=== PATIENT | female | born 1980 | race Caucasian/White ===

== ENCOUNTER 2017-08-31 08:21 | Emergency (ER) | payer OTHER ==
[2017-08-31] MEDS ORDERED: SODIUM CHLORIDE 0.9% 1,000 ML IV ONE (08:44)
[2017-08-31] MEDS ORDERED: MORPHINE 2 MG/ML SYRINGE IVP STA ×2 (08:44→09:17)
[2017-08-31] MEDS ORDERED: ONDANSETRON 4 MG/2 ML VIAL IVP STA (08:44)
[2017-08-31] MEDS ORDERED: SODIUM CHLORIDE FLUSH 0.9% 10 ML SYRINGE IVP ONE ×2 (08:45→11:40)
--- NOTE | 2017-08-31 09:00 | XRAY Preliminary Report ---
Exam: XR CHEST 1 VIEW IMPRESSION: Patchy left basilar airspace process suspicious for pneumonia. Otherwise negative portabl e chest. [facility] SITE ID: [id number]
[2017-08-31] MEDS ORDERED: MORPHINE 2 MG/ML SYRINGE ONE ×2 (09:01→09:24)
[2017-08-31] MEDS ORDERED: ONDANSETRON 4 MG/2 ML VIAL ONE (09:01)
--- NOTE | 2017-08-31 09:03 | XRAY Report ---
EXAM: CHEST RADIOGRAPHY EXAM DATE: 08/31/2017 08:48 AM. CLINICAL HISTORY: Chest pain. COMPARISON: None. TECHNIQUE: 1 view. FINDINGS: Lungs/Pleura: Shallow inspiratory effort. Patchy airspace disease left base. No other focal opacities evident. No pleural effusion. No pneumothorax. Mediastinum: Within exam limitations, the cardiomediastinal contour is normal. Other: None. IMPRESSION: Patchy left basilar airspace process suspicious for pneumonia. Otherwise negative portabl e chest. [facility] Referring Provider Line: [phone] SITE ID: [id number]
[2017-08-31 09:04] LABS: BASOPHILS # (AUTO) 0.1 10^3/uL (0.0-0.1); BASOPHILS % (AUTO) 0.8 %; EOSINOPHILS # (AUTO) 0.1 10^3/uL (0.0-0.7); EOSINOPHILS % (AUTO) 0.4 %; HCT - HEMATOCRIT 38.8 % (37.0-47.0); HGB - HEMOGLOBIN 13.7 g/dL (12.0-16.0); LYMPHOCYTES # (AUTO) 1.6 10^3/uL (1.5-3.5); LYMPHOCYTES % (AUTO) 10.3 %; MEAN CORPUSCULAR HEMOGLOBIN 31.9 pg (27.0-31.0); MEAN CORPUSCULAR HGB CONC 35.3 g/dL (32.0-36.0); MEAN CORPUSCULAR VOLUME 90.5 fL (81.0-99.0); MEAN PLATELET VOLUME 7.2 fL (7.9-10.8); MONOCYTES # (AUTO) 1.2 10^3/uL (0.0-1.0); MONOCYTES % (AUTO) 7.6 %; NEUTROPHILS # (AUTO) 12.9 10^3/uL (1.5-6.6); NEUTROPHILS % (AUTO) 80.9 %; NUCLEATED RED BLOOD CELLS AUTO 0.1 /100WBC; RED BLOOD COUNT 4.29 10^6/uL (4.20-5.40); RED CELL DISTRIBUTION WIDTH 12.3 % (12.0-15.0)
--- NOTE | 2017-08-31 09:16 | ED Physician Documentation ---
History of Present Illness - Stated complaint Stated Complaint: BACK/CHEST PX - Chief complaint Chief Complaint: Cardiac - Additonal information Additional information: hx from pt 37 female severe chest pain radiating to the back with extreme soa started last night no fever cough no leg swelling no abd pain no recent travel recently quit smoking fhx CAD Review of Systems Constitutional: denies: Fever, Chills Cardiac: reports: Chest pain / pressure Respiratory: denies: Dyspnea GI: denies: Abdominal Pain : denies: Now EGA (tubal ligation) Musculoskeletal: reports: Back pain Endocrine: denies: Easy bruising / bleeding Immunocompromised: denies: Immunocompromised PD PAST MEDICAL HISTORY - Past Medical History Past Medical History: No - Past Surgical History Ortho: Other /[employer]: Tubal ligation - Present Medications Home Medications: Ambulatory Orders Medication Instructions Recorded Confirmed Azithromycin [Zithromax] 250 mg PO DAILY #4 tablet 08/31/17 Cyclobenzaprine [Flexeril] 10 mg PO TID PRN #20 tablet 08/31/17 Ibuprofen [Motrin] 400 mg PO Q6H PRN #30 tablet 08/31/17 Lidocaine Patch 5% [Lidoderm Patch] 1 each TOP DAILY PRN #10 patch 08/31/17 Varenicline Tartrate [Chantix] 1 tab PO BID 08/31/17 08/31/17 guaiFENesin/CODEINE [Robitussin AC] 5 - 10 ml PO Q6H PRN #120 udc 08/31/17 - Allergies Allergies/Adverse Reactions: Allergies Allergy/AdvReac Type Severity Reaction Status Date / Time No Known Drug Allergies Allergy Verified 08/31/17 08:59 - Social History Does the pt smoke?: No Smoking Status: Former smoker Does the pt drink ETOH?: No Does the pt have substance abuse?: No - Immunizations Immunizations are current?: Yes PD ED PE NORMAL - Vitals Vital signs reviewed: Yes (tachy, in extremem pain, breathing very shallow) - General General: Alert and oriented X 3 - Neck Neck: Supple, no meningeal sign - Cardiac Cardiac: RRR - Respiratory Respiratory: No respiratory distress (rapid, shallow decreased) - Abdomen Abdomen: Soft, Non tender - Derm Derm: Normal color - Extremities Extremities: No edema, No calf tenderness / cord - Neuro Neuro: No motor deficit Results - Vitals Vitals: Vital Signs - 24 hr 08/31/17 08/31/17 08/31/17 08:26 09:42 10:03 Temperature 36.4 C L 36.8 C Heart Rate 122 H 102 H 104 H Respiratory 20 22 20 Rate Blood Pressure 140/91 H 142/92 H 136/84 H O2 Saturation 98 100 100 08/31/17 12:13 Temperature 36.0 C L Heart Rate 103 H Respiratory 16 Rate Blood Pressure 124/74 O2 Saturation 94 Oxygen O2 Source Room air - EKG (time done) 0829 Rate: Rate (enter#) (116) Rhythm: Sinus tachycardia [place]: Normal Intervals: Normal OR Ischemia: Normal ST segments - Labs Labs: Laboratory Tests 08/31/17 08/31/17 08/31/17 08:55 08:55 08:55 WBC 16.0 H RBC 4.29 Hgb 13.7 Hct 38.8 MCV 90.5 MCH 31.9 H MCHC 35.3 RDW 12.3 Plt Count 286 MPV 7.2 L Neut # 12.9 H Lymph # 1.6 [place] # 1.2 H Eos # 0.1 Baso # 0.1 Absolute Nucleated RBC 0.01 Nucleated RBC % 0.1 D-Dimer Sodium 132 L Potassium 4.3 Chloride 99 L Carbon Dioxide 23 Anion Gap 10.0 BUN 8 Creatinine 0.7 Estimated GFR (MDRD) 94 Glucose 159 H Calcium 9.1 Total Bilirubin 0.7 AST 28 ALT 21 Alkaline Phosphatase 50 Troponin I < 0.04 Total Protein 8.2 Albumin 4.3 Globulin 3.9 Albumin/Globulin Ratio 1.1 Lipase 16 L 08/31/17 10:25 WBC RBC Hgb Hct MCV MCH MCHC RDW Plt Count MPV Neut # Lymph # [place] # Eos # Baso # Absolute Nucleated RBC Nucleated RBC % D-Dimer < 200.0 L Sodium Potassium Chloride Carbon Dioxide Anion Gap BUN Creatinine Estimated GFR (MDRD) Glucose Calcium Total Bilirubin AST ALT Alkaline Phosphatase Troponin I Total Protein Albumin Globulin Albumin/Globulin Ratio Lipase - Rads (name of study) CXR Radiology: See rad report (patchy left basilar airspace dz) PD MEDICAL DECISION MAKING - ED course ED course: d dimer neg but pt not low risk for PE (smoker, tachy etc and abd CXR which could be infarct) so got CT with contrast showing no PE neg EKG and trop seems to be L pna with severe pleurisy will try to control sx and dc if pain controlled pt updated pain still severe after morphine so tried toradol lido patch bryan AC and flexeril (she felt spasm in her back) and she feels much much better and is ready to go Departure - Departure Disposition: 01 Home, Self Care Clinical Impression: Pneumonia Qualifiers: Pneumonia type: due to unspecified organism Laterality: left Lung location: unspecified part of lung Qualified Code(s): J18.9 - Pneumonia, unspecified organism Condition: Good Instructions: ED Pneumonia Adult Prescriptions: Azithromycin [Zithromax] 250 mg PO DAILY #4 tablet Cyclobenzaprine [Flexeril] 10 mg PO TID PRN #20 tablet PRN Reason: Spasms guaiFENesin/CODEINE [Robitussin AC] 5 - 10 ml PO Q6H PRN #120 udc PRN Reason: Cough Ibuprofen [Motrin] 400 mg PO Q6H PRN #30 tablet PRN Reason: Pain Lidocaine Patch 5% [Lidoderm Patch] 1 each TOP DAILY PRN #10 patch PRN Reason: Pain Forms: Activity restrictions
[2017-08-31 09:20] LABS: ALBUMIN/GLOBULIN RATIO 1.1 (1.0-2.2); BILIRUBIN,TOTAL 0.7 mg/dL (0.2-1.0); CALCIUM 9.1 mg/dL (8.5-10.3); CREATININE 0.7 mg/dL (0.4-1.0); POTASSIUM 4.3 mmol/L (3.5-5.0); TOTAL PROTEIN 8.2 g/dL (6.7-8.2)
[2017-08-31] MEDS ORDERED: IOPAMIDOL-300 100 ML VIAL ONE (09:43)
[2017-08-31] MEDS ORDERED: IOPAMIDOL-300 100 ML VIAL IVP ONE ×2 (10:16)
--- NOTE | 2017-08-31 10:30 | CT Preliminary Report ---
Exam: CT CHEST W/ IMPRESSION: 1. Mildly suboptimal contrast opacification of the pulmonary arteries, but no central pulmonary embol ism is demonstrated. 2. Mild bibasilar atelectasis and possible air trapping. Trace left pleural effusion. [facility] SITE ID: [id number]
--- NOTE | 2017-08-31 10:33 | CT Report ---
EXAM: CT ANGIOGRAM CHEST EXAM DATE: 08/31/2017 10:12 AM. CLINICAL HISTORY: Cp soa tachy concern for PE. COMPARISON: Chest radiograph performed earlier the same day. TECHNIQUE: Routine helical imaging was performed through the chest in the pulmonary arterial phase. I V Contrast: 65 cc [id number]. Reconstructions: Coronal 3-D MIP reconstructions.Sagittal and coronal. In accordance with CT protocol optimization, one or more of the following dose reduction techniques w ere utilized for this exam: automated exposure control, adjustment of mA and/or KV based on patient s ize, or use of iterative reconstructive technique. FINDINGS: Pulmonary Arteries: Diagnostic quality: Suboptimal, but adequate for evaluation through the proximal segmental arteries. No evidence for acute or chronic pulmonary emboli. RV/LV is within normal limits. There is no interventricular septal bowing. There is no reflux of cont rast material in the IVC. Lungs/Pleura: Mild bibasilar atelectasis and possible patchy air trapping. Trace left pleural effusio n. No right pleural effusion. No pneumothorax. No consolidation or suspicious pulmonary nodules. Mediastinum: Normal. No cardiac enlargement or adenopathy. Thoracic Aorta: Unremarkable. Upper Abdomen: Unremarkable. Other: Visualized osseous structures are within normal limits. IMPRESSION: 1. Mildly suboptimal contrast opacification of the pulmonary arteries, but no central pulmonary embol ism is demonstrated. 2. Mild bibasilar atelectasis and possible air trapping. Trace left pleural effusion. [facility] Referring Provider Line: [phone] SITE ID: [id number]
[2017-08-31] MEDS ORDERED: KETOROLAC 30 MG/ML VIAL IVP STA (11:26)
[2017-08-31] MEDS ORDERED: guaiFENesin/CODEINE 5 ML UDC PO STA (11:26)
[2017-08-31] MEDS ORDERED: AZITHROMYCIN 250 MG TABLET PO STA (11:26)
[2017-08-31] MEDS ORDERED: CYCLOBENZAPRINE 10 MG TABLET PO STA (11:26)
[2017-08-31] MEDS ORDERED: LIDOCAINE PATCH 5% TOP STA (11:26)
[2017-08-31] MEDS ORDERED: AZITHROMYCIN 250 MG TABLET PO ONE (11:40)
[2017-08-31] MEDS ORDERED: CYCLOBENZAPRINE 10 MG TABLET PO ONE (11:40)
[2017-08-31] MEDS ORDERED: guaiFENesin/CODEINE 5 ML UDC ONE (11:41)
[2017-08-31] MEDS ORDERED: LIDOCAINE PATCH 5% TOP ONE (11:41)
[2017-08-31] MEDS ORDERED: KETOROLAC 30 MG/ML VIAL ONE (11:41)
[2017-08-31 12:14] VITALS: BP 124/74
== END 2017-08-31 12:54 | disposition home or self-care (01) ==
LOC: ED 08:21
DX: J18.9 Pneumonia, unspecified organism (principal); R00.0 Tachycardia, unspecified; Z87.891 Personal history of nicotine dependence
CPT/HCPCS: 36415; 71010; 71260; 80053; 83690; 84484; 85025; 85379; 93005; 96361; 96374; 96375; 96376; 99284; A9270; J2270; Q9967